=== PATIENT | male | born 1940 | race Caucasian/White ===

== ENCOUNTER 2018-02-19 06:09 | Outpatient (CLI) | payer MEDICARE, MEDICAID ==
[2018-02-19 10:40] LABS: #Eosinphils 0.4 thou/uL (0.0-0.7); #Lymphocytes 1.7 thou/uL (1.20-3.40); #Monocytes 0.4 thou/uL (0.11-0.59); %Eosinophils 5.5 % (0.0-10.0); %Monocytes 5.5 % (0.0-10.0); Mean Corpuscular HGB CONC 34.6 g/dL (32.0-36.0); Mean Corpuscular Hemoglobin 34.9 pg (27.0-31.0); Mean Platelet Volume 8.8 fL (7.4-10.4); Platelet Count 187 thou/uL (130-400); RBC Distribution Width 13.6 % (11.5-14.5); Red Blood Cell (RBC) Count 2.85 mill/uL (4.70-6.10); White Blood Cell (WBC) Count 7.5 thou/uL (4.8-10.8)
--- NOTE | 2018-02-19 10:57 | RAD ---
ONE VIEW CHEST: History: Pre-operative exam. Comparison: 03-12-17 FINDINGS: There are sternotomy wires. Atherosclerosis of the aorta. Normal cardiac silhouette. The pulmonary ve ssels are within normal limits. Chronic changes in the left lung base. Possible left lower lobe atele ctasis versus infiltrate. No pneumothorax or osseous abnormalities. Stable surgical clips and vascular stents. IMPRESSION: Left lower lobe opacity due to infiltrate or atelectasis. POS: DAVY
[2018-02-19 11:00] LABS: ALT (SGPT) 7 U/L (8-55); AST (SGOT) 8 U/L (5-34); Albumin 3.9 g/dL (3.4-4.8); Alkaline Phosphatase 159 U/L (40-150); Anion Gap 18 mmol/L (10-20); BUN (Urea Nitrogen) 39 mg/dL (8.4-25.7); Bilirubin, Total 0.6 mg/dL (0.2-1.2); Calc. Creatinine Clearance 0 mL/min (70-130); Calcium 9.7 mg/dL (7.8-10.44); Carbon Dioxide 27 mmol/L (23-31); Cardiac Risk 2.3 (Less than 4.5); Chloride 96 mmol/L (98-107); Cholesterol 142 mg/dl (< 200 Desired); Estimated GFR-MDRD 7; Glucose 179 mg/dL (83-110); HDL Cholesterol 61 mg/dL (>60 Neg Risk); LDL Cholesterol, Calculated 63 mg/dL; Potassium 4.2 mmol/L (3.5-5.1); Protein, Total 7.9 g/dL (5.8-8.1); Sodium 137 mmol/L (136-145); Triglycerides 92 mg/dL (Less than 150)
== END 2018-02-19 06:10 | disposition home or self-care (01) ==
LOC: LABBT 06:09
PROVIDERS: ATTEND Internal Medicine Cardiovascular Disease
DX: Z01.818 Encounter for other preprocedural examination (principal); R93.89 Abnormal findings on diagnostic imaging of other specified body structures
CPT/HCPCS: 71045; 80053; 80061; 85025; 93005; 93010

== ENCOUNTER 2018-02-20 05:57 | Inpatient (IN) | payer MEDICARE, MEDICAID ==
[2018-02-19 08:54] VITALS: BMI 24.9
[2018-02-20] MEDS ORDERED: Heparin 10,000 UNITS/1 ML VIAL ONE (07:10)
[2018-02-20] MEDS ORDERED: Midazolam HCl 2 mg/2 ml Vial ONE (07:11)
[2018-02-20] MEDS ORDERED: Fentanyl 100 MCG/2 ML VIAL ONE (07:11)
[2018-02-20] MEDS ORDERED: Lidocaine 1% (PF) 30 ML VIAL ONE (07:20)
[2018-02-20 08:22] LABS: Anion Gap 19 mmol/L (10-20); Carbon Dioxide 25 mmol/L (23-31); Chloride 96 mmol/L (98-107); Potassium 4.4 mmol/L (3.5-5.1); Sodium 136 mmol/L (136-145)
[2018-02-20] MEDS ORDERED: Protamine Sulfate 50 MG/5 ML VIAL ONE (08:30)
[2018-02-20] MEDS ORDERED: Bivalirudin 250 MG VIAL ONE (08:55)
[2018-02-20] MEDS ORDERED: Clopidogrel Bisulfate 300 MG TAB ONE (09:05)
[2018-02-20] MEDS ORDERED: Morphine 4 MG/ML VIAL SLOW IVP PRN (10:00)
[2018-02-20] MEDS ORDERED: Nitroglycerin 0.4 MG TAB (25 Tab Bottle) SL PRN (10:00)
[2018-02-20] MEDS ORDERED: Iopamidol 370 76% 50 ML VIAL FS ONE (12:47)
[2018-02-20] MEDS ORDERED: Iopamidol 370 76% 100 ML VIAL ONE (12:47)
[2018-02-20] MEDS: Sevelamer Carbonate 800 MG TAB PO SCH (20:52)
[2018-02-20] MEDS: hydrALAZINE 25 MG TAB PO SCH ×2 (20:53→21:04)
[2018-02-20] MEDS ORDERED: Simvastatin 40 MG TAB PO SCH (21:00)
[2018-02-20] MEDS: Lisinopril 10 MG TAB PO SCH (21:03)
[2018-02-20] MEDS: Calcium Acetate 667 MG CAP PO SCH (21:04)
--- NOTE | 2018-02-20 23:48 | CCL ---
CARDIAC CATHETERIZATION REPORT 02/20/18 PROCEDURE: Left and right heart catheterization, selective coronary arteriography, and left ventriculography, aortic root injection, bypass graft angiography, CALDERÓN injection, and stent tl cement in the proximal portion of the right coronary artery graft. DESCRIPTION OF PROCEDURE: The patient was brought to the Cardiac Mapping Analyst and the right groin was prepped and draped in the usual fashion. 1% lidocaine was infiltrated. A 6 [place] sheath was placed to the right femoral artery followed by a 7 [place] sheath i n the right femoral vein. Heparin 3000 units was given. 7 [place] S-tipped thermodilution [place]-Juan ca theter was inserted. A wire was inserted to be able to navigate from the right ventricle into the pul monary artery. A 6 [place] double lumen pigtail was inserted and there was good tracking of the pressure waveform. Wi th a straight wire this would not advance into the left ventricle. This was removed and 6 [place] Judk ins right 4 was inserted. The straight wire was able to be advanced into the left ventricle; radha cuevas, the right 4 would not track into the left ventricle. This was then removed and 6 [place] multipurpo se catheter was used which would not cross. 6 [place] Amplatz left 2 was used and the valve was able to be crossed. An exchange J-wire was inserted and the Amplatz left 2 was removed and the 6 [place] do uble lumen pigtail was inserted. Simultaneous pressures were obtained. Thermodilution cardiac output was then performed. [place]-Juan catheter was removed. Left ventriculogram was performed using 30 mL of contrast at 12 mL per second in an NICOLE 30 degree pro jection. This was then pulled back into the aorta and aortic root injection was performed due to the very large pulse pressure. 30 mL of contrast at 15 mL per second were used. The pigtail was then howard kodi. The 6 [place] Isela left 4 followed by 6 [place] Isela right 4 was used for coronary arteriogr aphy. The right 4 was also used to opacify the ramus/diagonal grafts. The right 4 did not engage the right coronary graft and this was directed into the left subclavian. Using the J-wire this would not advance. Also, a 6 [place] SHARATH catheter was inserted which would not advance and the decision was made to perform a flush injection which showed a patent CALDERÓN. The SHARATH catheter was then removed. 6 [place] multipurpose catheter was inserted to opacify the right coronary artery graft. Position was then los t and the decision was made to insert a 6 [place] multipurpose guide catheter. Further views were obt ained. A filter wire was then inserted passed the area of obstruction. The patient was given Angiomax bolus and drip and Plavix 600 mg p.o. Rebel 4.2 x 16 mm stent was then positioned and deployed. The filter wire was retrieved. Final result was excellent. The sheath was sutured in placed. Patient was transferred to the PCU. RESULTS: PRESSURES: Right atrium 16/17, mean of 14 Right ventricle 72/14 Pulmonary artery 72/25, mean of 44 Pulmonary capillary wedge 24/28, mean of 23 Aorta 164/45, mean of 90 Left Ventricle 174/26 Cardiac output 3.47 liters per minute Cardiac index 2 liters per minute per meter square Mean aortic valve gradient 15 mm Aortic valve area 0.95 cm2 LEFT VENTRICULOGRAM: There was inferobasal akinesis with ejection fraction of 50-55%. There was mild mitral regurgitation. Aortic root injection revealed mild aortic insufficiency. CORONARY ARTERIOGRAPHY: 1. The left main had a 20% stenosis. 2. The LAD had a 60% proximal stenosis and was totally occluded in the mid portion. There was a 90% lesion in a smaller first diagonal. 3. The ramus had a 90% lesion and then was totally occluded. 4. The circumflex is a small vessel with 90% lesion. There is some retrograde filling of a circumfle x vessel from the ramus graft. 5. The right coronary artery had a 90 and 100% proximal stenosis. BYPASS GRAFTS: 1. The CALDERÓN to the LAD was patent. 2. The ramus graft was patent. 3. The second diagonal graft as patent (piggybacked onto the ramus graft). 4. The distal right coronary artery graft had a 90% proximal lesion and a 50% mid lesion. INTERVENTION RESULTS: The initial RCA graft stenosis was 90%, final lesion was 0%. IMPRESSION: 1. Three vessel coronary artery disease. 2. Four of four bypass grafts patent. 3. Mild left ventricular dysfunction. 4. Severe aortic stenosis. 5. Mild mitral regurgitation. 6. Mild aortic insufficiency. 7. Pulmonary artery hypertension. 8. Successful stent placement in the right coronary artery graft.
[2018-02-21] MEDS ORDERED: Morphine 2 MG/ML SYRINGE SLOW IVP PRN (00:03)
[2018-02-21] MEDS ORDERED: Dextrose 50% Abboject 50 ML SYRINGE IVP PRN (00:07)
[2018-02-21] MEDS ORDERED: Dextrose 5% in Water 1,000 ML IV PRN ×2 (00:07→07:17)
[2018-02-21] MEDS ORDERED: Insulin Regular 300 UNITS/3 ML VIAL SC PRN ×2 (00:07)
[2018-02-21 05:49] LABS: #Eosinphils 0.1 thou/uL (0.0-0.7); #Monocytes 0.4 thou/uL (0.11-0.59); #Neutrophils 4.3 thou/uL (1.40-6.50); %Basophils 0.3 % (0.0-1.0); %Eosinophils 1.8 % (0.0-10.0); %Lymphocytes 17.3 % (21.0-51.0); %Monocytes 6.1 % (0.0-10.0); %Neutrophils 74.5 % (42.0-75.0); Hemoglobin 9.2 g/dL (14.0-18.0); Mean Corpuscular HGB CONC 34.2 g/dL (32.0-36.0); Mean Corpuscular Hemoglobin 34.9 pg (27.0-31.0); Mean Platelet Volume 8.8 fL (7.4-10.4); Platelet Count 158 thou/uL (130-400); Red Blood Cell (RBC) Count 2.64 mill/uL (4.70-6.10); White Blood Cell (WBC) Count 5.8 thou/uL (4.8-10.8)
[2018-02-21 06:06] LABS: Albumin 3.3 g/dL (3.4-4.8)
[2018-02-21 06:07] LABS: Calcium 8.7 mg/dL (7.8-10.44); Chloride 97 mmol/L (98-107); Potassium 4.6 mmol/L (3.5-5.1); Sodium 133 mmol/L (136-145)
[2018-02-21 06:08] LABS: Globulin 3.2 g/dL (2.4-3.5); Glucose 168 mg/dL (83-110); Protein, Total 6.5 g/dL (5.8-8.1)
[2018-02-21 06:09] LABS: Carbon Dioxide 21 mmol/L (23-31)
[2018-02-21 06:10] LABS: Bilirubin, Total 0.6 mg/dL (0.2-1.2)
[2018-02-21 06:11] LABS: Alkaline Phosphatase 120 U/L (40-150); Calc. Creatinine Clearance 6 mL/min (70-130); Estimated GFR-MDRD 5
[2018-02-21 06:12] LABS: BUN (Urea Nitrogen) 59 mg/dL (8.4-25.7)
[2018-02-21 06:13] LABS: AST (SGOT) 5 U/L (5-34)
[2018-02-21 06:14] LABS: ALT (SGPT) Less than 7 U/L (8-55)
[2018-02-21 06:15] LABS: Anion Gap 17 mmol/L (10-20)
[2018-02-21] MEDS ORDERED: Dextrose 50% Abboject 50 ML SYRINGE SLOW IVP PRN (07:17)
[2018-02-21] MEDS: hydrALAZINE 25 MG TAB PO SCH ×2 (07:47→15:38)
[2018-02-21] MEDS ORDERED: hydrALAZINE 20 MG/ML VIAL SLOW IVP PRN (07:48)
[2018-02-21] MEDS ORDERED: cloNIDine 0.1 MG TAB PO PRN (07:48)
[2018-02-21] MEDS ORDERED: Cinacalcet HCl 30 MG TAB PO SCH (08:00)
[2018-02-21 08:12] VITALS: TEMP 97.4
[2018-02-21] MEDS ORDERED: Clopidogrel Bisulfate 75 MG TAB PO SCH (09:00)
[2018-02-21] MEDS ORDERED: Amlodipine 5 MG TAB PO SCH (09:00)
--- NOTE | 2018-02-21 10:29 | PDOC.CTH ---
Cardiology Progress Note - Subjective No complaints. Currently undergoing HD. BP elevated this AM, butnow 123/59mmHg. No CP, SOB or RUBY. - Objective Vital Signs Temp Pulse Resp BP BP BP Pulse Ox 02/21/18 08:00 97 02/21/18 07:47 72 203/88 H 02/21/18 07:36 97.4 F L 72 16 203/88 H 97 02/21/18 03:00 98.3 F 72 18 124/57 L 97 02/21/18 00:00 98.1 F Weight 159 lb 2.78 oz 02/20/18 02/21/18 02/22/18 06:59 06:59 06:59 Intake Total 1049 Output Total 0 Balance 1049 - Physical Examination General/Neuro: alert & oriented x3 Neck: no JVD present Lungs: CTA Heart: RRR Abdomen: NT/ND - Telemetry Telemetry Rhythm: SR; no naresh - Labs Result Diagrams: 02/21/18 05:26 02/21/18 05:26 - Assessment/Plan 1. s/p PCI with BMS-RCA graft 2. CAD 3. Junctional bradycardia 4. Hyperkalemia 5. ESRD on HD 6. Stable at this time. Probably home later today after HD. Needs Plavix and ASA at least one month. Plan for AVR in the future as outpatient per Dr. Snyder.
[2018-02-21 10:52] LABS: HBSAg Index 0.42 S/CO (0-0.99); Hep B Surf Ag Non-Reactive S/CO (NonReactive)
--- NOTE | 2018-02-21 11:39 | PDOC.PN ---
- Subjective Encounter Start Date: 02/21/18 Encounter Start Time: 11:37 Subjective: IM team consulted for medical Management.No PCP -: s/p BMS to RCA.4/4 CABG patent. -: seen & examined in HD. denies any CP/SOB/palpitations - Objective MAR Reviewed: Yes Vital Signs & Weight: Vital Signs (12 hours) Temp Pulse Resp BP BP BP Pulse Ox 02/21/18 08:00 97 02/21/18 07:47 72 203/88 H 02/21/18 07:36 97.4 F L 72 16 203/88 H 97 02/21/18 03:00 98.3 F 72 18 124/57 L 97 02/21/18 00:00 98.1 F Weight Weight 159 lb 2.78 oz Most Recent Monitor Data Heart Rate from ECG 72 NIBP 122/63 NIBP BP-Mean 76 Respiration from ECG 21 SpO2 100 I&O: 02/20/18 02/21/18 02/22/18 06:59 06:59 06:59 Intake Total 1049 Output Total 0 Balance 1049 Result Diagrams: 02/21/18 05:26 02/21/18 05:26 Additional Labs: Accuchecks 02/21/18 02/21/18 02/21/18 10:18 05:42 01:30 POC Glucose 109 173 H 202 H 02/20/18 17:30 POC Glucose 205 H Phys Exam - Physical Examination Constitutional: NAD HEENT: PERRLA, moist MMs, sclera anicteric, oral pharynx no lesions Neck: no nodes, no JVD, supple, full ROM Respiratory: no wheezing, no rales, no rhonchi, clear to auscultation bilateral Cardiovascular: RRR, no significant murmur Gastrointestinal: soft, non-tender, no distention, positive bowel sounds Musculoskeletal: no edema, pulses present Neurological: non-focal, normal sensation, moves all 4 limbs Psychiatric: normal affect, A&O x 3 Skin: no rash Dx/Plan (1) Hypertensive urgency Code(s): I16.0 - HYPERTENSIVE URGENCY Status: Acute (2) Junctional bradycardia Code(s): R00.1 - BRADYCARDIA, UNSPECIFIED Status: Acute (3) DM2 (diabetes mellitus, type 2) Status: Chronic (4) CAD (coronary artery disease) Code(s): I25.10 - ATHSCL HEART DISEASE OF [place] CORONARY ARTERY W/O ANG PCTRS Status: Chronic (5) HTN (hypertension) Code(s): I10 - ESSENTIAL (PRIMARY) HYPERTENSION Status: Chronic (6) Aortic stenosis Code(s): I35.0 - NONRHEUMATIC AORTIC (VALVE) STENOSIS Status: Chronic Qualifiers: Cardiac valve disease etiology: nonrheumatic Qualified Code(s): I35.0 - Nonrheumatic aortic (valve) stenosis (7) ESRD (end stage renal disease) on dialysis Code(s): N18.6 - END STAGE RENAL DISEASE; Z99.2 - DEPENDENCE ON RENAL DIALYSIS Status: Chronic - Plan PT/OT, incentive spirometry, out of bed/ambulate, DVT proph w/SCDs S/P BMS to prox RCA. cont ASA,plavix.cont BB,JOSE-I.on statin -: cont glipizide.add ISS w accuchecks -: BP very high.add prn antihypertensives.home meds as below -: HD .monitor renal Fx -: IM team will follow if remains inhouse.OP plan for TAVR * . Review of Systems - Review of Systems Constitutional: weakness. negative: fever, chills, sweats, malaise, other ENT: negative: Ear Pain, Ear Discharge, Nose Pain, Nose Discharge, Nose Congestion, Mouth Pain, Mouth Swelling, Throat Pain, Throat Swelling, Other Respiratory: negative: Cough, Dry, Shortness of Breath, Hemoptysis, SOB with Excertion, Pleuritic Pain, Sputum, Wheezing Cardiovascular: negative: chest pain, palpitations, orthopnea, paroxysmal nocturnal dyspnea, edema, light headedness, other Gastrointestinal: negative: Nausea, Vomiting, Abdominal Pain, Diarrhea, Constipation, Melena, Hematochezia, Other Genitourinary: negative: Dysuria, Frequency, Incontinence, Hematuria, Retention , Other Musculoskeletal: negative: Neck Pain, Shoulder Pain, Arm Pain, Back Pain, Hand Pain, Leg Pain, Foot Pain, Other Neurological: negative: Weakness, Numbness, Incoordination, Change in Speech, Confusion, Seizures, Other - Medications/Allergies Allergies/Adverse Reactions: Allergies Allergy/AdvReac Type Severity Reaction Status Date / Time No Known Allergies Allergy Unverified 02/19/18 08:54 Medications: Current Medications Amlodipine Besylate (Norvasc) 5 mg PO DAILY [facility] Aspirin (Aspirin Chewable) 81 mg PO DAILY [facility] Atorvastatin Calcium (Lipitor) 20 mg PO HS [facility] Calcium Acetate (Phoslo) 667 mg PO BID [facility] Last Admin: 02/20/18 21:04 Dose: 667 mg Cinacalcet (Sensipar) 60 mg PO QAM[facility] Clonidine (Catapres) 0.1 mg PO Q4H PRN PRN Reason: SBP>160 Clopidogrel Bisulfate (Plavix) 75 mg PO DAILY [facility] Dextrose/Water (Dextrose 50%) 25 gm SLOW IVP PRN PRN PRN Reason: Hypoglycemia Glipizide (Glucotrol Xl) 10 mg PO QAM[facility] Glucagon (Glucagon) 1 mg IM PRN PRN PRN Reason: Hypoglycemia Hydralazine HCl (Apresoline) 25 mg PO TID [facility] Last Admin: 02/21/18 07:47 Dose: 25 mg Hydralazine HCl (Apresoline) 10 mg SLOW IVP Q4H PRN PRN Reason: SBP>170 Dextrose/Water (D5w) 1,000 mls @ 0 mls/hr IV .Q0M PRN PRN Reason: Hypoglycemia Insulin Human Regular (Humulin R) 0 units SC .MILD SLIDING PRN; Protocol PRN Reason: MILD SLIDING SCALE Insulin Human Regular (Humulin R) 0 units SC .BEDTIME SLIDING SC PRN; Protocol PRN Reason: BEDTIME SLIDING SCALE Last Admin: 02/21/18 01:51 Dose: 2 unit Lisinopril (Zestril) 10 mg PO BID [facility] Last Admin: 02/20/18 21:03 Dose: 10 mg Metoprolol Succinate (Toprol Xl) 25 mg PO BID [facility] Last Admin: 02/20/18 21:03 Dose: 25 mg Morphine Sulfate (Morphine) 4 mg SLOW IVP Q4H PRN PRN Reason: Severe Chest Pain (7-10) Morphine Sulfate (Morphine) 2 mg SLOW IVP Q4H PRN PRN Reason: Moderate Chest Pain (4-6) Nitroglycerin (Nitrostat) 0.4 mg SL Q5MIN PRN PRN Reason: Chest Pain Sevelamer Carbonate (Renvela) 1,600 mg PO TID-[facility] Last Admin: 02/20/18 20:52 Dose: Not Given
[2018-02-21] MEDS: Lisinopril 10 MG TAB PO SCH (12:31)
[2018-02-21] MEDS: Sevelamer Carbonate 800 MG TAB PO SCH ×3 (12:31→18:18)
[2018-02-21] MEDS: Calcium Acetate 667 MG CAP PO SCH (12:32)
[2018-02-21 12:33] VITALS: BP 185/79
[2018-02-21] MEDS ORDERED: Atorvastatin Calcium 20 MG TAB PO SCH (21:00)
== END 2018-02-21 18:29 | disposition home or self-care (01) | DRG 248 ==
LOC: CCL 05:57 → CCU 16:45 → 2NO 02-21 02:19
PROVIDERS: ADMIT Internal Medicine Cardiovascular Disease; ATTEND Internal Medicine Cardiovascular Disease
PROC: 02703DZ Dilation of Coronary Artery, One Artery with Intraluminal Device, Percutaneous Approach (ICD-10-PCS; principal; 2018-02-20)
PROC: B2111ZZ Fluoroscopy of Multiple Coronary Arteries using Low Osmolar Contrast (ICD-10-PCS; 2018-02-20)
PROC: B2151ZZ Fluoroscopy of Left Heart using Low Osmolar Contrast (ICD-10-PCS; 2018-02-20)
PROC: B2131ZZ Fluoroscopy of Multiple Coronary Artery Bypass Grafts using Low Osmolar Contrast (ICD-10-PCS; 2018-02-20)
PROC: 5A1D70Z Performance of Urinary Filtration, Intermittent, Less than 6 Hours Per Day (ICD-10-PCS; 2018-02-20)
PROC: 4A023N8 Measurement of Cardiac Sampling and Pressure, Bilateral, Percutaneous Approach (ICD-10-PCS; 2018-02-20)
DX: I25.810 Atherosclerosis of coronary artery bypass graft(s) without angina pectoris (principal); N18.6 End stage renal disease; I12.0 Hypertensive chronic kidney disease with stage 5 chronic kidney disease or end stage renal disease; R00.1 Bradycardia, unspecified; Z95.1 Presence of aortocoronary bypass graft; M47.9 Spondylosis, unspecified; I27.20 Pulmonary hypertension, unspecified; Z79.84 Long term (current) use of oral hypoglycemic drugs; E11.22 Type 2 diabetes mellitus with diabetic chronic kidney disease; Z99.2 Dependence on renal dialysis; D63.1 Anemia in chronic kidney disease; E78.00 Pure hypercholesterolemia, unspecified; E87.5 Hyperkalemia; I16.0 Hypertensive urgency; I08.0 Rheumatic disorders of both mitral and aortic valves; Z95.5 Presence of coronary angioplasty implant and graft
CPT/HCPCS: 36415; 36416; 71045; 80051; 80053; 80061; 85025; 85347; 87340; 92928; 93005; 93010; 93461; 93561; 93567; 93798; 99152; 99153; C1769; C1876; C1887; J0583; J1644; J1815; J2001; J2250; J2720; J3010

== ENCOUNTER 2018-12-01 13:04 | Outpatient (CLI) | payer MEDICARE, MEDICAID ==
--- NOTE | 2018-12-01 14:02 | ULT ---
BILATERAL CAROTID DUPLEX ULTRASOUND: HISTORY: Carotid bruit. TECHNIQUE: Dubon-scale ultrasound with color-flow and spectral Doppler imaging of the extracranial carotid artery systems is performed bilaterally. FINDINGS: There is plaque formation on both sides. The peak systolic velocity in the right ICA measures 148 cm per second with an end diastolic velocity of 11 cm per second and a systolic ratio of 0.89. The peak systolic velocity in the left ICA measures 207 cm per second with an end diastolic velocity of 17 cm per second and a systolic ratio of 2.36. Flow in both vertebral arteries remains antegrade. IMPRESSION: Moderate (50%-69%) stenosis involving both internal carotid arteries. POS: OFF
== END 2018-12-01 13:05 | disposition home or self-care (01) ==
LOC: BICULT 13:04
PROVIDERS: ATTEND Family Medicine
DX: R09.89 Other specified symptoms and signs involving the circulatory and respiratory systems (principal); I65.23 Occlusion and stenosis of bilateral carotid arteries
CPT/HCPCS: 93880

== ENCOUNTER 2019-03-09 13:33 | Outpatient (CLI) | payer MEDICARE, MEDICAID ==
--- NOTE | 2019-03-09 14:48 | ULT ---
Exam: Vein mapping for dialysis access HISTORY: End-stage renal disease. TECHNIQUE: Multiplanar grayscale and color Doppler images were obtained in a bilateral upper extremit y venous ultrasound. Spectral analysis of the Doppler waveforms of the vessels were performed. FINDINGS: The bilateral internal jugular veins and subclavian veins are patent without evidence of th rombus. Right brachial artery 4.0 mm Right radial artery 2.0 mm Right ulnar artery 1.9 mm Left brachial artery 3.8 mm Left radial artery 1.7 mm Left ulnar artery 1.9 mm RIGHT CEPHALIC VEIN in millimeters 2.8 -- Shoulder Patent fistula -- Upper arm Patent fistula -- Mid upper arm 2.5-- Just proximal to the elbow 1.5 -- Just distal to the elbow 1.4 -- Forearm 0.8 -- Wrist RIGHT BASILIC VEIN in millimeters 2.1 -- Shoulder 1.9 -- Upper arm 1.6 -- Mid upper arm 1.4 -- Just proximal to the elbow Not visualized -- Just distal to the elbow Not visualized -- Forearm Not visualized -- Wrist LEFT CEPHALIC VEIN in millimeters 1.8 -- Shoulder 1.2 -- Upper arm 1.6 -- Mid upper arm 2.0 -- Just proximal to the elbow 1.1 -- Just distal to the elbow 1.3 -- Forearm 1.0 -- Wrist LEFT BASILIC VEIN in millimeters 2.4 -- Shoulder 1.9 -- Upper arm 1.6 -- Mid upper arm 1.3 -- Just proximal to the elbow 0.8 -- Just distal to the elbow 0.9 -- Forearm 1.1 -- Wrist IMPRESSION: Vein mapping for dialysis access as above
--- NOTE | 2019-03-09 15:21 | RAD ---
EXAM: Chest 2 views: HISTORY: Aneurysm of the dialysis fistula COMPARISON: 02/13/2016 FINDINGS: There is an enlarged cardiomediastinal silhouette. The patient is status post sternotomy. Vascular s tents are seen in the right subclavian region. There appear to be small bilateral pleural effusions. The bones are unremarkable. IMPRESSION: 1. Cardiomegaly 2. Small bilateral pleural effusions.
== END 2019-03-09 13:34 | disposition home or self-care (01) ==
LOC: ULT 13:33
PROVIDERS: ATTEND Specialist
DX: Z01.818 Encounter for other preprocedural examination (principal); N18.6 End stage renal disease; T82.898A Other specified complication of vascular prosthetic devices, implants and grafts, initial encounter
CPT/HCPCS: 71046; 73060; G0365; 93970

== ENCOUNTER 2019-03-30 12:38 | Day surgery (SDC) | payer MEDICARE, MEDICAID ==
[~2019-03-30 12:38] MED LIST: Bupivacaine HCl 0.5%/Epinephrine 1:200,000/PF 30 ml Vial ONE
[2019-03-30] MEDS ORDERED: PROPOFOL 200 MG/20 ML VIAL ONE (13:03)
[2019-03-30] MEDS ORDERED: Lidocaine 1% PF 5 ML VIAL ONE (13:03)
[2019-03-30 14:32] LABS: #Basophils 0.1 thou/uL (0.0-0.2); #Eosinphils 0.2 thou/uL (0.0-0.7); #Lymphocytes 1.5 thou/uL (1.20-3.40); #Monocytes 0.5 thou/uL (0.11-0.59); #Neutrophils 3.5 thou/uL (1.40-6.50); %Basophils 1.3 % (0.0-1.0); %Eosinophils 3.9 % (0.0-10.0); %Lymphocytes 26.3 % (21.0-51.0); %Neutrophils 60.5 % (42.0-75.0); Hemoglobin 11.5 g/dL (14.0-18.0); Mean Corpuscular HGB CONC 33.3 g/dL (32.0-36.0); Mean Platelet Volume 9.3 fL (7.4-10.4); Platelet Count 107 thou/uL (130-400); RBC Distribution Width 12.8 % (11.5-14.5); Red Blood Cell (RBC) Count 3.37 mill/uL (4.70-6.10); White Blood Cell (WBC) Count 5.8 thou/uL (4.8-10.8)
[2019-03-30 15:05] LABS: Anion Gap 12 mmol/L (10-20); BUN (Urea Nitrogen) 11 mg/dL (8.4-25.7); Calc. Creatinine Clearance 0 mL/min (70-130); Calcium 9.6 mg/dL (7.8-10.44); Carbon Dioxide 33 mmol/L (23-31); Chloride 95 mmol/L (98-107); Estimated GFR-MDRD 13; Glucose 109 mg/dL (83-110); Sodium 136 mmol/L (136-145)
[2019-03-30] MEDS ORDERED: Bupivacaine PF 0.5% 30 ML VIAL ONE (17:02)
[2019-03-30] MEDS ORDERED: Heparin 5,000 UNITS/ML VIAL ONE (17:02)
[2019-03-30] MEDS ORDERED: Protamine Sulfate 50 MG/5 ML VIAL ONE (17:02)
[2019-03-30] MEDS ORDERED: Lidocaine 2% w/Epinephrine 1:200K 20 ML VIAL ONE (17:02)
[2019-03-30] MEDS ORDERED: Fentanyl 100 MCG/2 ML VIAL ONE ×2 (17:13)
[2019-03-30] MEDS ORDERED: Propofol 500 MG/50 ML VIAL ONE (17:13)
[2019-03-30] MEDS ORDERED: Midazolam HCl 2 mg/2 ml Vial ONE (17:26)
[2019-03-30] MEDS ORDERED: Phenylephrine HCL 10 MG/ML VIAL ONE (17:26)
--- NOTE | 2019-03-31 01:26 | OP ---
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 PROCEDURE PERFORMED: Repair of right arm arteriovenous fistula, cephalic vein type aneurysm just above the antecubital fossa. ANESTHESIA: Regional, TIVA. ESTIMATED BLOOD LOSS: 80 mL. BLOOD TRANSFUSION: None. DESCRIPTION OF PROCEDURE: The patient was taken to the operating room where under regional anesthesia, right upper extremity was prepared with ChloraPrep and draped in routine fashion. An elliptical incision was made around the aneurysmal dilatation and thinned out skin excised, dissecting subcutaneous tissues from the aneurysm wall controlling proximally and distally. After administration of 6000 units of heparin about using vascular clamps to control it. Ellipse of aneurysm wall along with overlying skin excised and plication suture to-and-fro 4-0 prolene used to close the aneurysm. Subcutaneous tissue was approximated with 3-0 Monocryl, skin with subdermal 4-0 Monocryl, and [place] glue applied. The patient was given 50 mg of protamine intravenously by Anesthesia. The patient tolerated the procedure well. Job ID: [id number]
== END 2019-03-30 20:03 | disposition home or self-care (01) ==
LOC: SDC 12:38
PROVIDERS: ATTEND Specialist
PROC: 05WYX3Z Revision of Infusion Device in Upper Vein, External Approach (ICD-10-PCS; principal; 2019-03-30)
DX: T82.898A Other specified complication of vascular prosthetic devices, implants and grafts, initial encounter (principal); I12.0 Hypertensive chronic kidney disease with stage 5 chronic kidney disease or end stage renal disease; E11.22 Type 2 diabetes mellitus with diabetic chronic kidney disease; N18.6 End stage renal disease; I25.10 Atherosclerotic heart disease of native coronary artery without angina pectoris; E78.00 Pure hypercholesterolemia, unspecified; E87.5 Hyperkalemia; Z79.82 Long term (current) use of aspirin; Z79.899 Other long term (current) drug therapy; Z95.5 Presence of coronary angioplasty implant and graft
CPT/HCPCS: 80048; 85025; 93005; 93010; J0670; J0690; J1644; J2001; J2250; J2370; J2704; J2720; J3010; S0020

== ENCOUNTER 2019-07-16 07:17 | Outpatient (CLI) | payer MEDICARE, MEDICAID, OTHER ==
--- NOTE | 2019-07-16 12:49 | RAD ---
CHEST 1 VIEW: Date: 07/16/2019 Time: 1234 hours HISTORY: Preop evaluation. COMPARISON: 03/09/2019. FINDINGS/IMPRESSION: Right-sided vascular stents and changes of median sternotomy are again noted. The heart size is promi nent, but stable. There is pulmonary vascular congestion with small right pleural effusion. No pneumo thoraces or lobar consolidation seen. POS: C
[2019-07-16 13:20] LABS: #Eosinphils 0.2 thou/uL (0.0-0.7); #Lymphocytes 1.5 thou/uL (1.20-3.40); #Monocytes 0.4 thou/uL (0.11-0.59); #Neutrophils 2.6 thou/uL (1.40-6.50); %Basophils 0.9 % (0.0-1.0); %Eosinophils 4.8 % (0.0-10.0); %Lymphocytes 31.6 % (21.0-51.0); %Monocytes 7.8 % (0.0-10.0); Hypochromia SLIGHT = 6-15 cells (100X) (0-5/hpf); MDiff Complete? YES; Macrocytosis SLIGHT = 6-15 cells (100X) (0-5/hpf); Mean Corpuscular HGB CONC 33.8 g/dL (32.0-36.0); Mean Corpuscular Hemoglobin 35.9 pg (27.0-31.0); Mean Platelet Volume 8.6 fL (7.4-10.4); Platelet Count 128 thou/uL (130-400); Platelet Morphology Comment Appears Decreased; Polychromasia SLIGHT = 2-3 cells (100X) (0-2/hpf); RBC Distribution Width 13.3 % (11.5-14.5); Red Blood Cell (RBC) Count 3.06 mill/uL (4.70-6.10); Schistocytes SLIGHT = 2-5 cells (100X) (0-1/hpf); Tear Drops SLIGHT = 2-5 cells (100X) (0-1/hpf); White Blood Cell (WBC) Count 4.8 thou/uL (4.8-10.8)
[2019-07-16 13:21] LABS: ALT (SGPT) 8 U/L (8-55); AST (SGOT) 12 U/L (5-34); Albumin 3.7 g/dL (3.4-4.8); Alkaline Phosphatase 140 U/L (40-110); Anion Gap 11 mmol/L (10-20); BUN (Urea Nitrogen) 8 mg/dL (8.4-25.7); Calc. Creatinine Clearance 0 mL/min (70-130); Calcium 9.1 mg/dL (7.8-10.44); Carbon Dioxide 33 mmol/L (23-31); Chloride 96 mmol/L (98-107); Estimated GFR-MDRD 18; Globulin 3.7 g/dL (2.4-3.5); Glucose 122 mg/dL (83-110); Potassium 3.5 mmol/L (3.5-5.1); Protein, Total 7.4 g/dL (5.8-8.1); Sodium 136 mmol/L (136-145)
[2019-07-20 17:45] LABS: SARS-CoV-2 MS2 Positive; SARS-CoV-2 N Gene Negative; SARS-CoV-2 S Gene Negative; SARS-CoV-2 orf1ab Negative
--- NOTE | 2019-07-23 23:27 | EKG ---
Test Reason : Blood Pressure : / mmHG Vent. Rate : 066 BPM Atrial Rate : 066 BPM P-R Int : 000 ms QRS Dur : 104 ms QT Int : 458 ms P-R-T Axes : 082 -36 153 degrees QTc Int : 480 ms Sinus rhythm with 1st degree A-V block Left axis deviation Pulmonary disease pattern Left ventricular hypertrophy with repolarization abnormality Inferior infarct , age undetermined Abnormal ECG Confirmed by Lior CASTRO ([id number]) on 07/23/2019 11:27:08 PM Referred By: PARKER Confirmed By:Lior CASTRO
== END 2019-07-16 07:18 | disposition home or self-care (01) ==
LOC: LABBT 07:17
PROVIDERS: ATTEND Internal Medicine Cardiovascular Disease
DX: Z01.818 Encounter for other preprocedural examination (principal); Z11.59 Encounter for screening for other viral diseases; J90 Pleural effusion, not elsewhere classified; R09.89 Other specified symptoms and signs involving the circulatory and respiratory systems; Z98.890 Other specified postprocedural states
CPT/HCPCS: 71045; 80053; 85025; 93005; U0003; 87635; 93010

== ENCOUNTER 2019-07-21 05:53 | Observation (INO) | payer MEDICARE, MEDICAID ==
[2019-07-21] MEDS ORDERED: Heparin 10,000 UNITS/1 ML VIAL ONE (06:45)
[2019-07-21] MEDS ORDERED: Midazolam HCl 2 mg/2 ml Vial ONE (07:21)
[2019-07-21] MEDS ORDERED: Fentanyl 100 MCG/2 ML VIAL ONE (07:21)
[2019-07-21] MEDS ORDERED: Bivalirudin 250 MG VIAL ONE (08:18)
[2019-07-21] MEDS ORDERED: Adenosine 6 MG/2 ML VIAL ONE (08:22)
[2019-07-21] MEDS ORDERED: Clopidogrel Bisulfate 300 MG TAB ONE (08:29)
[2019-07-21] MEDS ORDERED: Metoprolol Tartrate 25 MG TAB PO SCH (10:15)
[2019-07-21] MEDS ORDERED: Protamine Sulfate 50 MG/5 ML VIAL ONE (14:05)
[2019-07-21] MEDS ORDERED: Ergocalciferol 1.25 MG(50,000 UNITS) CAP PO SCH (15:15)
[2019-07-21] MEDS ORDERED: Atorvastatin Calcium 20 MG TAB PO SCH (21:00)
[2019-07-21] MEDS: Metoprolol Tartrate 25 MG TAB PO SCH (23:09)
[2019-07-21] MEDS: Sevelamer Carbonate 800 MG TAB PO SCH (23:14)
[2019-07-22] MEDS ORDERED: hydrALAZINE 20 MG/ML VIAL SLOW IVP PRN (00:04)
[2019-07-22] MEDS ORDERED: hydrALAZINE 20 MG/ML VIAL SLOW IVP SCH (00:15)
[2019-07-22 02:15] LABS: HBSAB Concentration 148.48 mIU/mL; Hep B Surf AB Reactive (NonReactive)
[2019-07-22 07:13] VITALS: BMI 23.1
[2019-07-22] MEDS: Metoprolol Tartrate 25 MG TAB PO SCH (08:31)
[2019-07-22] MEDS: Sevelamer Carbonate 800 MG TAB PO SCH ×3 (08:31→17:24)
[2019-07-22] MEDS ORDERED: Clopidogrel Bisulfate 75 MG TAB PO SCH (09:00)
[2019-07-22] MEDS ORDERED: Polyethylene Glycol 3350 17 GM Packet PO SCH (09:00)
[2019-07-22] MEDS ORDERED: Cinacalcet HCl 30 MG TAB PO SCH (09:00)
[2019-07-22] MEDS ORDERED: Aspirin 81 mg Enteric Coated Tablet PO SCH (09:00)
[2019-07-22] MEDS ORDERED: Ergocalciferol 1.25 MG(50,000 UNITS) CAP PO SCH (09:00)
[2019-07-22 16:02] VITALS: BP 173/73; TEMP 99
--- NOTE | 2019-07-22 23:52 | DIS ---
DATE OF ADMISSION: 07/21/2019 DATE OF DISCHARGE: 07/22/2019 DISCHARGE DIAGNOSES: 1. Drug-eluting stent placed in the mid right posterior descending artery graft. 2. Status post coronary artery bypass graft x4 with all grafts patent. 3. Previous stent placement in the proximal portion of the right posterior descending graft. 4. Drithtpc-dl-eeztrf aortic stenosis. 5. End-stage renal disease, on dialysis. 6. Hypercholesterolemia. 7. Hypertension. 8. History of junctional bradycardia with hyperkalemia at 7.7, heart rates in the 20s in July 2017. 9. Mitral regurgitation. PLAN: 1. Plavix 75 mg daily was added to his current regimen. We will continue his other medications - aspirin 81 daily, simvastatin 40 daily, glipizide 10 mg daily, metoprolol 25 ER b.i.d., MiraLAX, Renvela 800 mg two tablets t.i.d. DISCHARGE DISPOSITION: Patient will be seen in 1 month for followup to assess his exertional dyspnea. If he continues to be quite symptomatic, then consideration may be given to TAVR. HOSPITAL COURSE: Mr. Lund had increasing shortness of breath and fatigue. His ejection fraction had fallen from 50% to 40%. It was felt that his aortic stenosis may have significantly worsened and it was recommended that he undergo cardiac catheterization and possible eventual advancement to TAVR. However, at the time of catheterization, his aortic valve area was 1.08 cm2. His grafts were patent except the right posterior descending graft had an 80% stenosis distal to the previous stent which continued to show good results. He underwent placement of drug- eluting stent in this area - Synergy 4.0 x 16 mm with reduction from 80% to 0%. He continued to have prolonged ACTs and this necessitated observation overnight after his sheath was finally pulled. If he continues to have any significant exertional dyspnea, then consideration may need to be given to TAVR. Job ID: [id number] [facility]
== END 2019-07-22 18:55 | disposition home or self-care (01) ==
LOC: SDC 05:53 → 2NO 22:36
PROVIDERS: ADMIT Internal Medicine Cardiovascular Disease; ATTEND Internal Medicine Cardiovascular Disease
PROC: 027034Z Dilation of Coronary Artery, One Artery with Drug-eluting Intraluminal Device, Percutaneous Approach (ICD-10-PCS; principal; 2019-07-21)
PROC: 4A023N7 Measurement of Cardiac Sampling and Pressure, Left Heart, Percutaneous Approach (ICD-10-PCS; 2019-07-21)
PROC: B2111ZZ Fluoroscopy of Multiple Coronary Arteries using Low Osmolar Contrast (ICD-10-PCS; 2019-07-21)
PROC: B2181ZZ Fluoroscopy of Left Internal Mammary Bypass Graft using Low Osmolar Contrast (ICD-10-PCS; 2019-07-21)
PROC: B2131ZZ Fluoroscopy of Multiple Coronary Artery Bypass Grafts using Low Osmolar Contrast (ICD-10-PCS; 2019-07-21)
DX: I25.810 Atherosclerosis of coronary artery bypass graft(s) without angina pectoris (principal); I25.10 Atherosclerotic heart disease of native coronary artery without angina pectoris; I25.82 Chronic total occlusion of coronary artery; I35.2 Nonrheumatic aortic (valve) stenosis with insufficiency; I34.0 Nonrheumatic mitral (valve) insufficiency; I12.0 Hypertensive chronic kidney disease with stage 5 chronic kidney disease or end stage renal disease; E11.22 Type 2 diabetes mellitus with diabetic chronic kidney disease; N18.6 End stage renal disease; E78.00 Pure hypercholesterolemia, unspecified; E78.5 Hyperlipidemia, unspecified; Z87.891 Personal history of nicotine dependence; Z79.82 Long term (current) use of aspirin; Z79.84 Long term (current) use of oral hypoglycemic drugs; Z79.899 Other long term (current) drug therapy; Z95.1 Presence of aortocoronary bypass graft; Z95.5 Presence of coronary angioplasty implant and graft; Z99.2 Dependence on renal dialysis
CPT/HCPCS: 37213; 85347 ×2; 86706; 93005; 93461; 93561; 96374; C1769; C1887; C9604; G0378; 90935; 92937; 93010; 99152; 99153; G0257; J0153; J0360; J0583; J1644; J2250; J2720; J3010

== ENCOUNTER 2019-10-15 13:07 | Emergency (ER) | payer MEDICARE, MEDICAID | END 2019-10-15 14:20 | disposition home or self-care (01) | LOC: ERS 13:07 | DX: T82.838A Hemorrhage due to vascular prosthetic devices, implants and grafts, initial encounter (principal); E11.9 Type 2 diabetes mellitus without complications; E05.90 Thyrotoxicosis, unspecified without thyrotoxic crisis or storm; I10 Essential (primary) hypertension; Z79.82 Long term (current) use of aspirin; Z79.899 Other long term (current) drug therapy | CPT/HCPCS: 99284 ==

== ENCOUNTER 2020-02-17 11:22 | Emergency (ER) | payer MEDICARE, MEDICAID ==
[2020-02-17] MEDS ORDERED: HYDROcodone/Acetaminophen 5/325 mg Tablet ONE (12:03)
--- NOTE | 2020-02-17 12:39 | RAD ---
RIGHT SHOULDER 3 VIEWS: Date: 02/17/2020 HISTORY: Injury from a fall with swelling and pain. FINDINGS: Comminuted humeral neck fracture with some foreshortening and displacement without dislocation. Promi nent vascular calcifications. Right-sided subclavian stent. IMPRESSION: Comminuted fracture right humeral neck with some foreshortening and malalignment without dislocation. Other findings as above. POS: AH
--- NOTE | 2020-02-17 12:43 | RAD ---
RIGHT HUMERUS 2 VIEWS: Date: 02/17/2020 HISTORY: Injury from trauma with swelling and pain. COMPARISON: 03/09/2019. FINDINGS: Again noted is a displaced, foreshortened, comminuted humeral neck fracture, possibly involving porti ons of the humeral head, but without dislocation. Extensive vascular calcifications and heterotopic o ssification within the soft tissues of the arm. The mid and distal portion of the humerus is intact. IMPRESSION: Comminuted, foreshortened fracture of the right humeral neck without dislocation. Other findings as a darrell. POS: AH
== END 2020-02-17 12:51 | disposition home or self-care (01) ==
LOC: ERS 11:22
DX: S42.291A Other displaced fracture of upper end of right humerus, initial encounter for closed fracture (principal); E11.9 Type 2 diabetes mellitus without complications; I10 Essential (primary) hypertension; Z79.899 Other long term (current) drug therapy; W01.10XA Fall on same level from slipping, tripping and stumbling with subsequent striking against unspecified object, initial encounter

== ENCOUNTER 2021-08-15 12:16 | Inpatient (IN) | payer MEDICARE, MEDICAID ==
[2021-08-15 13:37] LABS: ALT (SGPT) 10 U/L (8-55); AST (SGOT) 16 U/L (5-34); Albumin 3.6 g/dL (3.4-4.8); Alkaline Phosphatase 162 U/L (40-110); Anion Gap 20 mmol/L (10-20); BUN (Urea Nitrogen) 39 mg/dL (8.4-25.7); Calc. Creatinine Clearance 0 mL/min (70-130); Calcium 9.1 mg/dL (7.8-10.44); Carbon Dioxide 28 mmol/L (23-31); Chloride 91 mmol/L (98-107); Globulin 4.3 g/dL (2.4-3.5); Glucose 341 mg/dL (83-110); Potassium 4.4 mmol/L (3.5-5.1); Protein, Total 7.9 g/dL (5.8-8.1); Sodium 135 mmol/L (136-145)
[2021-08-15 13:59] LABS: #Lymphocytes 0.7 thou/uL (1.20-3.40); #Monocytes 0.3 thou/uL (0.11-0.59); #Neutrophils 6.3 thou/uL (1.40-6.50); %Eosinophils 0.5 % (0.0-10.0); %Lymphocytes 9.3 % (21.0-51.0); %Monocytes 3.6 % (0.0-10.0); %Neutrophils 86.5 % (42.0-75.0); Hemoglobin 7.6 g/dL (14.0-18.0); MDiff Complete? YES; Macrocytosis SLIGHT = 6-15 cells (100X) (0-5/hpf); Mean Corpuscular HGB CONC 33.3 g/dL (32.0-36.0); Mean Corpuscular Hemoglobin 35.4 pg (27.0-31.0); Mean Platelet Volume 8.5 fL (7.4-10.4); Platelet Count 123 thou/uL (130-400); Platelet Morphology Comment Appears Decreased; Polychromasia SLIGHT = 2-3 cells (100X) (0-2/hpf); RBC Distribution Width 14.4 % (11.5-14.5); Red Blood Cell (RBC) Count 2.14 mill/uL (4.70-6.10); White Blood Cell (WBC) Count 7.3 thou/uL (4.8-10.8)
[2021-08-15 14:03] LABS: CKMB 2.1 ng/mL (0-6.6)
[2021-08-15] MEDS ORDERED: Labetalol HCl 100 MG/20 ML VIAL SLOW IVP PRN (14:57)
[2021-08-15] MEDS ORDERED: Ondansetron PF 4 MG/2 ML Vial IVP PRN (14:59)
[2021-08-15] MEDS ORDERED: Dextrose 50% Abboject 50 ML SYRINGE SLOW IVP PRN (14:59)
[2021-08-15] MEDS ORDERED: HumaLOG 300 UNITS/3 ML VIAL SC PRN (14:59)
[2021-08-15] MEDS ORDERED: Promethazine HCl 25 MG/ML VIAL IM PRN (14:59)
[2021-08-15] MEDS ORDERED: Dextrose 5% in Water 1,000 ML IV PRN (14:59)
[2021-08-15] MEDS ORDERED: traMADol HCl 50 MG TAB PO PRN (15:01)
[2021-08-15] MEDS ORDERED: Cyclobenzaprine 10 MG TAB PO PRN (15:01)
[2021-08-15 15:54] LABS: SARS-CoV-2 NAA Rapid Test Not Detected (NotDetected)
[2021-08-15 16:16] LABS: Hemoglobin A1c 5.9 % (4.0-6.0)
[2021-08-15] MEDS ORDERED: Metoprolol Tartrate 25 MG TAB PO SCH (21:00)
[2021-08-15] MEDS: Ferrous Sulfate 325 MG TAB PO SCH (22:36)
[2021-08-15] MEDS: Acetaminophen 500 MG TAB PO SCH ×2 (22:36→23:05)
[2021-08-15] MEDS: Sevelamer Carbonate 800 MG TAB PO SCH (22:36)
[2021-08-15] MEDS: Insulin Glargine 30 UNITS/0.3 ML VIAL SC SCH (22:37)
[2021-08-15] MEDS: Senokot S 8.6-50 MG TAB PO SCH (22:37)
[2021-08-15] MEDS: Atorvastatin Calcium 20 MG TAB PO SCH (22:37)
[2021-08-15] MEDS: Famotidine 20 MG TAB PO SCH (22:39)
[2021-08-15] MEDS: Ascorbic Acid 500 mg Chewable Tablet PO SCH (22:39)
[2021-08-16 04:10] LABS: #Basophils 0.1 thou/uL (0.0-0.2); #Eosinphils 0.5 thou/uL (0.0-0.7); #Lymphocytes 0.8 thou/uL (1.20-3.40); #Monocytes 0.4 thou/uL (0.11-0.59); #Neutrophils 4.8 thou/uL (1.40-6.50); %Basophils 1.1 % (0.0-1.0); %Eosinophils 7.6 % (0.0-10.0); %Lymphocytes 12.6 % (21.0-51.0); %Neutrophils 72.8 % (42.0-75.0); Hemoglobin 7.2 g/dL (14.0-18.0); Mean Corpuscular HGB CONC 32.5 g/dL (32.0-36.0); Mean Corpuscular Hemoglobin 35.1 pg (27.0-31.0); Mean Platelet Volume 8.1 fL (7.4-10.4); Platelet Count 108 thou/uL (130-400); RBC Distribution Width 14.6 % (11.5-14.5); Red Blood Cell (RBC) Count 2.04 mill/uL (4.70-6.10); White Blood Cell (WBC) Count 6.6 thou/uL (4.8-10.8)
[2021-08-16 04:26] LABS: Anion Gap 13 mmol/L (10-20); BUN (Urea Nitrogen) 18 mg/dL (8.4-25.7); Calc. Creatinine Clearance 14 mL/min (70-130); Calcium 8.9 mg/dL (7.8-10.44); Carbon Dioxide 32 mmol/L (23-31); Chloride 96 mmol/L (98-107); Glucose 129 mg/dL (83-110); Magnesium 2.1 mg/dL (1.6-2.6); Phosphorus 3.3 mg/dL (2.3-4.7); Potassium 4.1 mmol/L (3.5-5.1); Sodium 137 mmol/L (136-145)
[2021-08-16] MEDS: Acetaminophen 500 MG TAB PO SCH ×3 (06:10→17:38)
[2021-08-16] MEDS ORDERED: Polyethylene Glycol 3350 17 GM Packet PO SCH (09:00)
[2021-08-16] MEDS: Metoprolol Tartrate 25 MG TAB PO SCH ×2 (09:56→21:25)
[2021-08-16] MEDS: Famotidine 20 MG TAB PO SCH (09:56)
[2021-08-16] MEDS: Sevelamer Carbonate 800 MG TAB PO SCH ×3 (09:57→17:39)
[2021-08-16] MEDS: Ascorbic Acid 500 mg Chewable Tablet PO SCH ×2 (10:07→21:19)
[2021-08-16] MEDS: Polyethylene Glycol 3350 17 GM Packet PO SCH (10:07)
[2021-08-16] MEDS: Ferrous Sulfate 325 MG TAB PO SCH ×2 (10:07→17:39)
[2021-08-16] MEDS: Senokot S 8.6-50 MG TAB PO SCH ×2 (10:07→21:25)
[2021-08-16] MEDS: EPOETIN ALFA-EPBX (ESRD) 3,000 UNIT/ML VIAL SC SCH (17:39)
[2021-08-16] MEDS: Insulin Glargine 30 UNITS/0.3 ML VIAL SC SCH (21:18)
[2021-08-16] MEDS: Atorvastatin Calcium 20 MG TAB PO SCH (21:25)
[2021-08-17] MEDS: Acetaminophen 500 MG TAB PO SCH ×4 (00:25→18:16)
[2021-08-17 04:38] LABS: #Eosinphils 0.6 thou/uL (0.0-0.7); #Lymphocytes 1.4 thou/uL (1.20-3.40); #Monocytes 0.5 thou/uL (0.11-0.59); %Basophils 0.7 % (0.0-1.0); %Eosinophils 9.8 % (0.0-10.0); %Lymphocytes 21.1 % (21.0-51.0); %Monocytes 8.1 % (0.0-10.0); %Neutrophils 60.4 % (42.0-75.0); Hemoglobin 7.5 g/dL (14.0-18.0); Mean Corpuscular HGB CONC 31.9 g/dL (32.0-36.0); Mean Corpuscular Hemoglobin 34.7 pg (27.0-31.0); Mean Platelet Volume 8.3 fL (7.4-10.4); Platelet Count 134 thou/uL (130-400); RBC Distribution Width 14.4 % (11.5-14.5); Red Blood Cell (RBC) Count 2.17 mill/uL (4.70-6.10); White Blood Cell (WBC) Count 6.6 thou/uL (4.8-10.8)
[2021-08-17 05:05] LABS: Troponin I 0.286 ng/mL (< 0.028)
[2021-08-17 05:07] LABS: Anion Gap 17 mmol/L (10-20); BUN (Urea Nitrogen) 35 mg/dL (8.4-25.7); Calc. Creatinine Clearance 9 mL/min (70-130); Calcium 9.1 mg/dL (7.8-10.44); Carbon Dioxide 27 mmol/L (23-31); Chloride 93 mmol/L (98-107); Glucose 87 mg/dL (83-110); Magnesium 2.3 mg/dL (1.6-2.6); Phosphorus 4.1 mg/dL (2.3-4.7); Potassium 4.3 mmol/L (3.5-5.1); Sodium 133 mmol/L (136-145)
[2021-08-17] MEDS: Sevelamer Carbonate 800 MG TAB PO SCH ×3 (13:09→18:16)
[2021-08-17] MEDS: Ascorbic Acid 500 mg Chewable Tablet PO SCH ×2 (13:09→21:42)
[2021-08-17] MEDS: Polyethylene Glycol 3350 17 GM Packet PO SCH (13:10)
[2021-08-17] MEDS: Senokot S 8.6-50 MG TAB PO SCH ×2 (13:10→21:42)
[2021-08-17] MEDS: Ferrous Sulfate 325 MG TAB PO SCH ×2 (13:10→18:16)
[2021-08-17] MEDS: Folic Acid 1 MG TAB PO SCH (13:17)
[2021-08-17] MEDS: Famotidine 20 MG TAB PO SCH (13:18)
[2021-08-17] MEDS: Metoprolol Tartrate 25 MG TAB PO SCH ×2 (13:18→21:42)
[2021-08-17] MEDS ORDERED: ceFAZolin 2 GM/Dextrose 50 ML 2 GM in Premix Bag 1 BAG IVPB SCH (14:15)
[2021-08-17] MEDS: Atorvastatin Calcium 20 MG TAB PO SCH (21:41)
[2021-08-18] MEDS: Acetaminophen 500 MG TAB PO SCH ×5 (01:22→22:26)
[2021-08-18] MEDS: Polyethylene Glycol 3350 17 GM Packet PO SCH (09:03)
[2021-08-18] MEDS: Ferrous Sulfate 325 MG TAB PO SCH ×2 (09:04→17:12)
[2021-08-18] MEDS: Folic Acid 1 MG TAB PO SCH (09:04)
[2021-08-18] MEDS: Senokot S 8.6-50 MG TAB PO SCH ×2 (09:04→21:37)
[2021-08-18] MEDS: Sevelamer Carbonate 800 MG TAB PO SCH ×3 (09:04→17:12)
[2021-08-18] MEDS: Metoprolol Tartrate 25 MG TAB PO SCH ×2 (09:04→21:37)
[2021-08-18] MEDS: Famotidine 20 MG TAB PO SCH (09:04)
[2021-08-18] MEDS: Ascorbic Acid 500 mg Chewable Tablet PO SCH ×2 (09:04→21:37)
[2021-08-18] MEDS ORDERED: Fentanyl 100 MCG/2 ML VIAL ONE (12:08)
[2021-08-18] MEDS ORDERED: Sodium Chloride 0.9% 100 ML ONE (12:26)
[2021-08-18] MEDS ORDERED: CEFAZOLIN 2 GM VIAL ONE (12:26)
[2021-08-18] MEDS ORDERED: Phenylephrine 10 MG/ML VIAL ONE (13:04)
[2021-08-18] MEDS ORDERED: Albumin 5% 250 ML ONE (13:11)
[2021-08-18] MEDS ORDERED: Albumin 5% 0 ML ONE (13:11)
[2021-08-18] MEDS ORDERED: ePHEDrine 50 MG/ML VIAL ONE (13:16)
[2021-08-18] MEDS ORDERED: PHENYLEPHRINE-NS 100 MCG/ML 10 ML SYRINGE ONE (13:16)
[2021-08-18] MEDS ORDERED: Naloxone HCl 0.4 mg/ml Vial ONE (13:16)
[2021-08-18] MEDS ORDERED: Lidocaine 1% PF 5 ML VIAL ONE (13:16)
[2021-08-18] MEDS ORDERED: fentaNYL Citrate/PF 100 MCG/2 ML SYRINGE ONE (14:01)
[2021-08-18] MEDS: Atorvastatin Calcium 20 MG TAB PO SCH (21:37)
[2021-08-19 04:51] LABS: #Eosinphils 0.3 thou/uL (0.0-0.7); #Lymphocytes 1.2 thou/uL (1.20-3.40); #Monocytes 0.6 thou/uL (0.11-0.59); %Basophils 0.2 % (0.0-1.0); %Eosinophils 6.5 % (0.0-10.0); %Lymphocytes 23.9 % (21.0-51.0); %Monocytes 10.8 % (0.0-10.0); %Neutrophils 58.5 % (42.0-75.0); Hemoglobin 8.4 g/dL (14.0-18.0); Mean Corpuscular HGB CONC 32.1 g/dL (32.0-36.0); Mean Corpuscular Hemoglobin 33.3 pg (27.0-31.0); Mean Platelet Volume 7.8 fL (7.4-10.4); Platelet Count 143 thou/uL (130-400); RBC Distribution Width 14.9 % (11.5-14.5); Red Blood Cell (RBC) Count 2.51 mill/uL (4.70-6.10); White Blood Cell (WBC) Count 5.1 thou/uL (4.8-10.8)
[2021-08-19 05:06] LABS: Anion Gap 19 mmol/L (10-20); BUN (Urea Nitrogen) 42 mg/dL (8.4-25.7); Calc. Creatinine Clearance 9 mL/min (70-130); Calcium 9.1 mg/dL (7.8-10.44); Carbon Dioxide 26 mmol/L (23-31); Chloride 97 mmol/L (98-107); Glucose 121 mg/dL (83-110); Magnesium 2.3 mg/dL (1.6-2.6); Phosphorus 4.9 mg/dL (2.3-4.7); Potassium 4.8 mmol/L (3.5-5.1); Sodium 137 mmol/L (136-145)
[2021-08-19] MEDS: hydrALAZINE 20 MG/ML VIAL SLOW IVP PRN ×3 (05:55→18:20)
[2021-08-19] MEDS: Acetaminophen 500 MG TAB PO SCH ×3 (06:04→18:17)
[2021-08-19] MEDS: Sevelamer Carbonate 800 MG TAB PO SCH ×3 (09:19→17:11)
[2021-08-19] MEDS: Ferrous Sulfate 325 MG TAB PO SCH ×2 (11:23→17:08)
[2021-08-19] MEDS: Ascorbic Acid 500 mg Chewable Tablet PO SCH ×2 (11:24→21:22)
[2021-08-19] MEDS: Metoprolol Tartrate 25 MG TAB PO SCH ×2 (11:30→21:22)
[2021-08-19] MEDS: Famotidine 20 MG TAB PO SCH (11:30)
[2021-08-19] MEDS: Folic Acid 1 MG TAB PO SCH (11:30)
[2021-08-19] MEDS: Senokot S 8.6-50 MG TAB PO SCH ×2 (11:31→21:23)
[2021-08-19] MEDS: Polyethylene Glycol 3350 17 GM Packet PO SCH (11:31)
[2021-08-19] MEDS: Morphine 2 MG/ML VIAL SLOW IVP PRN (17:00)
[2021-08-19] MEDS ORDERED: Labetalol HCl 100 MG/20 ML VIAL SLOW IVP PRN (20:11)
[2021-08-19] MEDS: Atorvastatin Calcium 20 MG TAB PO SCH (21:22)
[2021-08-20] MEDS: Acetaminophen 500 MG TAB PO SCH ×4 (00:39→17:45)
[2021-08-20] MEDS: Morphine 2 MG/ML VIAL SLOW IVP PRN (03:40)
[2021-08-20 04:15] LABS: #Eosinphils 0.3 thou/uL (0.0-0.7); #Lymphocytes 1.1 thou/uL (1.20-3.40); #Monocytes 0.5 thou/uL (0.11-0.59); #Neutrophils 3.8 thou/uL (1.40-6.50); %Basophils 0.2 % (0.0-1.0); %Eosinophils 5.7 % (0.0-10.0); %Lymphocytes 19.7 % (21.0-51.0); %Monocytes 8.9 % (0.0-10.0); %Neutrophils 65.6 % (42.0-75.0); Hemoglobin 8.7 g/dL (14.0-18.0); Mean Corpuscular HGB CONC 33.3 g/dL (32.0-36.0); Mean Corpuscular Hemoglobin 34.9 pg (27.0-31.0); Mean Platelet Volume 7.9 fL (7.4-10.4); Platelet Count 144 thou/uL (130-400); RBC Distribution Width 14.8 % (11.5-14.5); Red Blood Cell (RBC) Count 2.49 mill/uL (4.70-6.10); White Blood Cell (WBC) Count 5.7 thou/uL (4.8-10.8)
[2021-08-20 04:36] LABS: Anion Gap 23 mmol/L (10-20); BUN (Urea Nitrogen) 58 mg/dL (8.4-25.7); Calc. Creatinine Clearance 7 mL/min (70-130); Calcium 9.1 mg/dL (7.8-10.44); Carbon Dioxide 22 mmol/L (23-31); Chloride 96 mmol/L (98-107); Glucose 119 mg/dL (83-110); Magnesium 2.5 mg/dL (1.6-2.6); Phosphorus 5.8 mg/dL (2.3-4.7); Potassium 5.2 mmol/L (3.5-5.1); Sodium 136 mmol/L (136-145)
[2021-08-20] MEDS: Famotidine 20 MG TAB PO SCH (09:48)
[2021-08-20] MEDS: Ascorbic Acid 500 mg Chewable Tablet PO SCH ×2 (09:48→22:54)
[2021-08-20] MEDS: Aspirin 81 mg Enteric Coated Tablet PO SCH (09:48)
[2021-08-20] MEDS: Sevelamer Carbonate 800 MG TAB PO SCH ×3 (09:48→17:45)
[2021-08-20] MEDS: Ferrous Sulfate 325 MG TAB PO SCH ×2 (09:48→17:45)
[2021-08-20] MEDS: Senokot S 8.6-50 MG TAB PO SCH ×2 (09:49→22:55)
[2021-08-20] MEDS: Folic Acid 1 MG TAB PO SCH (09:49)
[2021-08-20] MEDS: Metoprolol Tartrate 25 MG TAB PO SCH ×2 (09:49→22:54)
[2021-08-20] MEDS: Polyethylene Glycol 3350 17 GM Packet PO SCH (09:49)
[2021-08-20] MEDS ORDERED: Communication Order-Pharmacy FS SCH (17:00)
[2021-08-20] MEDS: hydrALAZINE 20 MG/ML VIAL SLOW IVP PRN (17:59)
[2021-08-20] MEDS: Atorvastatin Calcium 20 MG TAB PO SCH (22:54)
[2021-08-20] MEDS: traMADol HCl 50 MG TAB PO SCH (22:54)
[2021-08-20] MEDS ORDERED: traMADol HCl 50 MG TAB PO SCH (23:59)
[2021-08-21] MEDS: Acetaminophen 500 MG TAB PO SCH ×5 (00:14→23:27)
[2021-08-21] MEDS: Metoprolol Tartrate 25 MG TAB PO SCH ×2 (05:32→20:51)
[2021-08-21] MEDS: Aspirin 81 mg Enteric Coated Tablet PO SCH (05:32)
[2021-08-21] MEDS ORDERED: Lidocaine 1% (PF) 30 ML VIAL ONE (06:32)
[2021-08-21] MEDS ORDERED: Fentanyl 100 MCG/2 ML VIAL ONE (07:13)
[2021-08-21] MEDS ORDERED: Midazolam HCl 2 mg/2 ml Vial ONE (07:13)
[2021-08-21] MEDS ORDERED: Heparin 10,000 UNITS/ 10 ML VIAL ONE (07:18)
[2021-08-21] MEDS ORDERED: Bivalirudin 250 MG VIAL ONE (08:08)
[2021-08-21] MEDS ORDERED: Clopidogrel Bisulfate 300 MG TAB ONE ×2 (08:17→08:31)
[2021-08-21] MEDS ORDERED: Morphine 2 MG/ML VIAL SLOW IVP PRN (09:02)
[2021-08-21] MEDS ORDERED: CEFAZOLIN 2 GM in Sodium Chloride 0.9% 100 ML IVPB SCH (09:45)
[2021-08-21] MEDS ORDERED: ceFAZolin 2 GM/Dextrose 50 ML 2 GM in Premix Bag 1 BAG IVPB SCH (09:45)
[2021-08-21] MEDS ORDERED: hydrALAZINE 20 MG/ML VIAL ONE ×2 (10:08→14:23)
[2021-08-21] MEDS: hydrALAZINE 20 MG/ML VIAL SLOW IVP PRN (10:09)
[2021-08-21] MEDS ORDERED: Iopamidol 370 76% 50 ML VIAL FS ONE (11:59)
[2021-08-21] MEDS ORDERED: Iopamidol 370 76% 100 ML VIAL ONE (11:59)
[2021-08-21] MEDS ORDERED: Morphine 2 MG/ML VIAL ONE (16:18)
[2021-08-21] MEDS: Senokot S 8.6-50 MG TAB PO SCH ×2 (17:37→20:51)
[2021-08-21] MEDS: Folic Acid 1 MG TAB PO SCH (17:37)
[2021-08-21] MEDS: Polyethylene Glycol 3350 17 GM Packet PO SCH (17:37)
[2021-08-21] MEDS: Ascorbic Acid 500 mg Chewable Tablet PO SCH ×2 (17:37→20:51)
[2021-08-21] MEDS: Famotidine 20 MG TAB PO SCH (17:37)
[2021-08-21] MEDS: Sevelamer Carbonate 800 MG TAB PO SCH ×2 (17:37→18:50)
[2021-08-21] MEDS: Ferrous Sulfate 325 MG TAB PO SCH ×2 (17:37→18:49)
[2021-08-21] MEDS: traMADol HCl 50 MG TAB PO SCH ×2 (17:38→20:51)
[2021-08-21] MEDS: Atorvastatin Calcium 20 MG TAB PO SCH (20:51)
[2021-08-22 04:40] LABS: SARS-CoV-2 NAA Rapid Test Not Detected (NotDetected)
[2021-08-22 05:15] LABS: #Eosinphils 0.1 thou/uL (0.0-0.7); #Lymphocytes 0.6 thou/uL (1.20-3.40); #Monocytes 0.4 thou/uL (0.11-0.59); #Neutrophils 3.6 thou/uL (1.40-6.50); %Eosinophils 2.6 % (0.0-10.0); %Monocytes 9.2 % (0.0-10.0); %Neutrophils 76.2 % (42.0-75.0); Mean Corpuscular HGB CONC 32.2 g/dL (32.0-36.0); Mean Corpuscular Hemoglobin 34.1 pg (27.0-31.0); Mean Platelet Volume 7.7 fL (7.4-10.4); Platelet Count 156 thou/uL (130-400); RBC Distribution Width 14.7 % (11.5-14.5); Red Blood Cell (RBC) Count 2.64 mill/uL (4.70-6.10); White Blood Cell (WBC) Count 4.8 thou/uL (4.8-10.8)
[2021-08-22 05:26] LABS: INR-International Normal Ratio 1.2; Prothrombin Time 15.7 sec (12.0-14.7)
[2021-08-22 05:46] LABS: Phosphorus 6.6 mg/dL (2.3-4.7)
[2021-08-22 05:49] LABS: ALT (SGPT) 7 U/L (8-55); AST (SGOT) 9 U/L (5-34); Albumin 2.8 g/dL (3.4-4.8); Alkaline Phosphatase 97 U/L (40-110); Anion Gap 24 mmol/L (10-20); BUN (Urea Nitrogen) 42 mg/dL (8.4-25.7); Bilirubin, Total 0.8 mg/dL (0.2-1.2); Calc. Creatinine Clearance 8 mL/min (70-130); Calcium 8.8 mg/dL (7.8-10.44); Carbon Dioxide 22 mmol/L (23-31); Chloride 94 mmol/L (98-107); Estimated GFR 9; Globulin 3.4 g/dL (2.4-3.5); Glucose 104 mg/dL (83-110); Magnesium 2.4 mg/dL (1.6-2.6); Potassium 5.3 mmol/L (3.5-5.1); Protein, Total 6.2 g/dL (5.8-8.1); Sodium 135 mmol/L (136-145)
[2021-08-22] MEDS: Acetaminophen 500 MG TAB PO SCH ×3 (06:11→18:00)
[2021-08-22] MEDS: Ferrous Sulfate 325 MG TAB PO SCH ×2 (14:42→18:00)
[2021-08-22] MEDS: Sevelamer Carbonate 800 MG TAB PO SCH ×3 (14:42→18:00)
[2021-08-22] MEDS: Ascorbic Acid 500 mg Chewable Tablet PO SCH ×2 (14:43→22:13)
[2021-08-22] MEDS: Aspirin 81 mg Enteric Coated Tablet PO SCH (14:44)
[2021-08-22] MEDS: Clopidogrel Bisulfate 75 MG TAB PO SCH (14:44)
[2021-08-22] MEDS: Famotidine 20 MG TAB PO SCH (14:44)
[2021-08-22] MEDS: Metoprolol Tartrate 25 MG TAB PO SCH ×2 (14:45→22:13)
[2021-08-22] MEDS: Polyethylene Glycol 3350 17 GM Packet PO SCH (14:45)
[2021-08-22] MEDS: Folic Acid 1 MG TAB PO SCH (14:45)
[2021-08-22] MEDS: traMADol HCl 50 MG TAB PO SCH ×2 (14:46→22:29)
[2021-08-22] MEDS: Senokot S 8.6-50 MG TAB PO SCH ×2 (14:46→22:13)
[2021-08-22] MEDS: Atorvastatin Calcium 20 MG TAB PO SCH (22:13)
[2021-08-23] MEDS: Acetaminophen 500 MG TAB PO SCH ×4 (01:56→17:37)
[2021-08-23] MEDS: Clopidogrel Bisulfate 75 MG TAB PO SCH (08:59)
[2021-08-23] MEDS: Ferrous Sulfate 325 MG TAB PO SCH ×2 (08:59→17:37)
[2021-08-23] MEDS: Sevelamer Carbonate 800 MG TAB PO SCH ×3 (08:59→17:37)
[2021-08-23] MEDS: Famotidine 20 MG TAB PO SCH (09:00)
[2021-08-23] MEDS: Polyethylene Glycol 3350 17 GM Packet PO SCH (09:00)
[2021-08-23] MEDS: Senokot S 8.6-50 MG TAB PO SCH ×2 (09:00→21:46)
[2021-08-23] MEDS: Folic Acid 1 MG TAB PO SCH (09:00)
[2021-08-23] MEDS: Aspirin 81 mg Enteric Coated Tablet PO SCH (09:00)
[2021-08-23] MEDS: Ascorbic Acid 500 mg Chewable Tablet PO SCH ×2 (09:00→21:45)
[2021-08-23] MEDS: Metoprolol Tartrate 25 MG TAB PO SCH ×2 (09:00→21:49)
[2021-08-23] MEDS: traMADol HCl 50 MG TAB PO SCH ×2 (09:03→21:46)
[2021-08-23] MEDS: EPOETIN ALFA-EPBX (ESRD) 3,000 UNIT/ML VIAL SC SCH (09:06)
[2021-08-23] MEDS: Atorvastatin Calcium 20 MG TAB PO SCH (21:45)
[2021-08-23] MEDS: Lisinopril 5 MG TAB PO SCH (21:48)
[2021-08-24] MEDS: Acetaminophen 500 MG TAB PO SCH ×5 (00:36→16:41)
[2021-08-24] MEDS: hydrALAZINE 20 MG/ML VIAL SLOW IVP PRN (06:01)
[2021-08-24 08:50] VITALS: BMI 21.8
[2021-08-24] MEDS ORDERED: traMADol HCl 50 MG TAB PO PRN (09:26)
[2021-08-24] MEDS: Ascorbic Acid 500 mg Chewable Tablet PO SCH (10:16)
[2021-08-24] MEDS: Ferrous Sulfate 325 MG TAB PO SCH ×3 (10:16→16:41)
[2021-08-24] MEDS: Sevelamer Carbonate 800 MG TAB PO SCH ×4 (10:16→16:41)
[2021-08-24] MEDS: Lisinopril 5 MG TAB PO SCH (10:17)
[2021-08-24] MEDS: Metoprolol Tartrate 25 MG TAB PO SCH (10:17)
[2021-08-24] MEDS: Senokot S 8.6-50 MG TAB PO SCH (10:17)
[2021-08-24] MEDS: traMADol HCl 50 MG TAB PO SCH (14:51)
[2021-08-24 15:39] VITALS: BP 162/90; TEMP 98.5
[2021-08-24] MEDS: Famotidine 20 MG TAB PO SCH ×2 (16:13→16:41)
[2021-08-24] MEDS: Polyethylene Glycol 3350 17 GM Packet PO SCH (16:13)
[2021-08-24] MEDS: Clopidogrel Bisulfate 75 MG TAB PO SCH ×2 (16:13→16:41)
[2021-08-24] MEDS: Aspirin 81 mg Enteric Coated Tablet PO SCH ×2 (16:13→16:41)
[2021-08-24] MEDS: Folic Acid 1 MG TAB PO SCH ×2 (16:13→16:41)
[2021-08-25] MEDS ORDERED: Ergocalciferol 1.25 MG(50,000 UNITS) CAP PO SCH (09:00)
== END 2021-08-24 18:54 | disposition home or self-care (01) | DRG 981 ==
LOC: ERS 12:16 → ERHOLD 14:39 → 2NO 20:16
PROVIDERS: ADMIT Surgery; ATTEND Surgery
PROC: 5A1D70Z Performance of Urinary Filtration, Intermittent, Less than 6 Hours Per Day (ICD-10-PCS; 2021-08-15)
PROC: 5A1D70Z Performance of Urinary Filtration, Intermittent, Less than 6 Hours Per Day (ICD-10-PCS; 2021-08-17)
PROC: 30233N1 Transfusion of Nonautologous Red Blood Cells into Peripheral Vein, Percutaneous Approach (ICD-10-PCS; 2021-08-18)
PROC: 3E033XZ Introduction of Vasopressor into Peripheral Vein, Percutaneous Approach (ICD-10-PCS; 2021-08-18)
PROC: 5A1D70Z Performance of Urinary Filtration, Intermittent, Less than 6 Hours Per Day (ICD-10-PCS; 2021-08-20)
PROC: 4A023N8 Measurement of Cardiac Sampling and Pressure, Bilateral, Percutaneous Approach (ICD-10-PCS; principal; 2021-08-21)
PROC: B2111ZZ Fluoroscopy of Multiple Coronary Arteries using Low Osmolar Contrast (ICD-10-PCS; 2021-08-21)
PROC: B2131ZZ Fluoroscopy of Multiple Coronary Artery Bypass Grafts using Low Osmolar Contrast (ICD-10-PCS; 2021-08-21)
PROC: B2151ZZ Fluoroscopy of Left Heart using Low Osmolar Contrast (ICD-10-PCS; 2021-08-21)
PROC: 027034Z Dilation of Coronary Artery, One Artery with Drug-eluting Intraluminal Device, Percutaneous Approach (ICD-10-PCS; 2021-08-21)
PROC: 5A1D70Z Performance of Urinary Filtration, Intermittent, Less than 6 Hours Per Day (ICD-10-PCS; 2021-08-22)
PROC: 5A1D70Z Performance of Urinary Filtration, Intermittent, Less than 6 Hours Per Day (ICD-10-PCS; 2021-08-24)
DX: S72.001A Fracture of unspecified part of neck of right femur, initial encounter for closed fracture (principal); N18.6 End stage renal disease; I21.4 Non-ST elevation (NSTEMI) myocardial infarction; I12.0 Hypertensive chronic kidney disease with stage 5 chronic kidney disease or end stage renal disease; I25.10 Atherosclerotic heart disease of native coronary artery without angina pectoris; W19.XXXA Unspecified fall, initial encounter; D63.1 Anemia in chronic kidney disease; E78.00 Pure hypercholesterolemia, unspecified; Z20.822 Contact with and (suspected) exposure to COVID-19; I35.0 Nonrheumatic aortic (valve) stenosis; E87.5 Hyperkalemia; I95.2 Hypotension due to drugs; T41.45XA Adverse effect of unspecified anesthetic, initial encounter; Z99.2 Dependence on renal dialysis; Z95.1 Presence of aortocoronary bypass graft; Z95.5 Presence of coronary angioplasty implant and graft; Y92.9 Unspecified place or not applicable; Z87.891 Personal history of nicotine dependence; I25.2 Old myocardial infarction
CPT/HCPCS: 36415; 36416; 36430; 71045; 80048; 80053; 82553; 83036; 83735; 84100; 84484; 85025; 85347; 85610; 85730; 86850; 86900; 86901; 90935; 92928; 93005; 93010; 93306; 93461; 97139; 99152; 99153; C1874; C9600; G0257; J0360; J0583; J0690; J1644; J1815; J2001; J2250; J2270; J2310; J2370; J3010; J3490; P9016; P9045; Q5105; Q9967; U0002

== ENCOUNTER 2021-09-08 22:07 | Emergency (ER) | payer MEDICARE, MEDICAID ==
[2021-09-08 23:00] LABS: #Eosinphils 0.2 thou/uL (0.0-0.7); #Lymphocytes 1.4 thou/uL (1.20-3.40); #Monocytes 0.5 thou/uL (0.11-0.59); #Neutrophils 3.6 thou/uL (1.40-6.50); %Basophils 0.6 % (0.0-1.0); %Lymphocytes 23.7 % (21.0-51.0); %Monocytes 8.9 % (0.0-10.0); %Neutrophils 62.8 % (42.0-75.0); Hemoglobin 8.2 g/dL (14.0-18.0); Mean Corpuscular HGB CONC 32.5 g/dL (32.0-36.0); Mean Corpuscular Hemoglobin 34.3 pg (27.0-31.0); Mean Platelet Volume 7.5 fL (7.4-10.4); Platelet Count 211 thou/uL (130-400); RBC Distribution Width 15.6 % (11.5-14.5); Red Blood Cell (RBC) Count 2.39 mill/uL (4.70-6.10); White Blood Cell (WBC) Count 5.8 thou/uL (4.8-10.8)
[2021-09-08 23:25] LABS: ALT (SGPT) 10 U/L (8-55); AST (SGOT) 13 U/L (5-34); Albumin 3.1 g/dL (3.4-4.8); Alkaline Phosphatase 120 U/L (40-110); Anion Gap 15 mmol/L (10-20); BUN (Urea Nitrogen) 19 mg/dL (8.4-25.7); Calc. Creatinine Clearance 0 mL/min (70-130); Calcium 9.7 mg/dL (7.8-10.44); Carbon Dioxide 34 mmol/L (23-31); Chloride 96 mmol/L (98-107); Estimated GFR 10; Globulin 3.9 g/dL (2.4-3.5); Glucose 118 mg/dL (83-110); Potassium 3.9 mmol/L (3.5-5.1); Sodium 141 mmol/L (136-145)
== END 2021-09-09 01:06 | disposition home or self-care (01) ==
LOC: ERS 22:07
DX: L89.511 Pressure ulcer of right ankle, stage 1 (principal); I10 Essential (primary) hypertension; E11.9 Type 2 diabetes mellitus without complications; I25.2 Old myocardial infarction; E21.3 Hyperparathyroidism, unspecified; Z99.2 Dependence on renal dialysis; Z87.19 Personal history of other diseases of the digestive system; Z79.82 Long term (current) use of aspirin; Z79.84 Long term (current) use of oral hypoglycemic drugs; Z79.899 Other long term (current) drug therapy
CPT/HCPCS: 36415; 80053; 83605; 85025; 87040